=== PATIENT | female | born 1945 | race Two or more races ===

== ENCOUNTER 2019-02-15 07:13 | Outpatient (CLI) | payer OTHER | END 2019-02-15 07:20 | disposition home or self-care (01) | LOC: TOM 07:13 | DX: K44.9 Diaphragmatic hernia without obstruction or gangrene (principal); N28.89 Other specified disorders of kidney and ureter | CPT/HCPCS: 74160; Q9965 ==

== ENCOUNTER 2019-12-26 14:01 | Outpatient (CLI) | payer OTHER | END 2019-12-26 14:17 | disposition home or self-care (01) | LOC: SONOGRAMA 14:01 → MAMO-SONO 14:45 | DX: D21.6 Benign neoplasm of connective and other soft tissue of trunk, unspecified (principal) ==

== ENCOUNTER 2020-08-31 07:40 | Outpatient (CLI) | payer OTHER | END 2020-08-31 07:46 | disposition home or self-care (01) | LOC: SONOGRAMA 07:40 → MAMO-SONO 08:15 | PROVIDERS: ATTEND Internal Medicine Hepatology | DX: K76.0 Fatty (change of) liver, not elsewhere classified (principal) ==

== ENCOUNTER 2021-01-09 10:08 | Outpatient (CLI) | payer OTHER | END 2021-01-09 10:22 | disposition home or self-care (01) | LOC: MAMO-SONO 10:08 | DX: Z12.31 Encounter for screening mammogram for malignant neoplasm of breast (principal); Z87.898 Personal history of other specified conditions; N64.89 Other specified disorders of breast ==

== ENCOUNTER → 2021-07-15 | Outpatient (CLI) | payer OTHER | END | disposition home or self-care (01) | LOC: MAMO-SONO 12:22 | PROVIDERS: ATTEND Specialist | DX: D24.2 Benign neoplasm of left breast (principal); N60.02 Solitary cyst of left breast; R92.8 Other abnormal and inconclusive findings on diagnostic imaging of breast ==

== ENCOUNTER 2021-08-01 11:35 | Outpatient (CLI) | payer OTHER | END 2021-08-01 11:45 | disposition home or self-care (01) | LOC: RAD 11:35 | PROVIDERS: ATTEND Specialist | DX: M17.0 Bilateral primary osteoarthritis of knee (principal) ==

== ENCOUNTER → 2022-01-09 | Outpatient (CLI) | payer OTHER | END | disposition home or self-care (01) | LOC: MAMO-SONO 09:06 | PROVIDERS: ATTEND Specialist | DX: D24.2 Benign neoplasm of left breast (principal) ==

== ENCOUNTER 2022-11-24 12:44 | Outpatient (CLI) | payer OTHER | END 2022-11-24 12:45 | disposition home or self-care (01) | LOC: NUCLEAR 12:44 | PROVIDERS: ATTEND Obstetrics & Gynecology Gynecology | DX: M81.0 Age-related osteoporosis without current pathological fracture (principal) ==

== ENCOUNTER → 2022-11-24 | Outpatient (CLI) | payer OTHER | END | disposition home or self-care (01) | LOC: SONOGRAMA 10:21 | PROVIDERS: ATTEND Obstetrics & Gynecology | DX: B43.2 Subcutaneous pheomycotic abscess and cyst (principal); K61.31 Horseshoe abscess ==

== ENCOUNTER 2023-01-13 12:58 | Outpatient (CLI) | payer OTHER | END 2023-01-13 13:09 | disposition home or self-care (01) | LOC: MAMO-SONO 12:58 | PROVIDERS: ATTEND Specialist | DX: N60.12 Diffuse cystic mastopathy of left breast (principal) ==

== ENCOUNTER 2023-05-21 13:19 | Outpatient (CLI) | payer OTHER | END 2023-05-21 13:25 | disposition home or self-care (01) | LOC: RAD 13:19 | DX: Z96.652 Presence of left artificial knee joint (principal) ==

== ENCOUNTER 2023-06-30 13:09 | Outpatient (CLI) | payer OTHER | END 2023-06-30 13:15 | disposition home or self-care (01) | LOC: RAD 13:09 | PROVIDERS: ATTEND Specialist | DX: R22.2 Localized swelling, mass and lump, trunk (principal); I10 Essential (primary) hypertension ==

== ENCOUNTER 2023-07-14 05:06 | Day surgery (SDC) | payer OTHER ==
[~2023-07-14 05:06] MED LIST: CARVEDILOL12.5 MG; CHILDREN'S ASPI81 MG PO; CRESTOR40 MG PO; HYDRODIURIL12.5 MG PO; LEVOTHYROXINE25 MCG PO; MICARDIS80 MG PO; NORVASC5 MG PO; PROTONIX40 MG PO; ZESTRIL20 MG PO; ZETIA10 MG PO
== END 2023-07-14 11:25 | disposition home or self-care (01) ==
LOC: CIR.AMB 05:06
PROVIDERS: ATTEND Specialist
DX: D48.1 Neoplasm of uncertain behavior of connective and other soft tissue (principal); L72.0 Epidermal cyst; R22.2 Localized swelling, mass and lump, trunk; Z20.822 Contact with and (suspected) exposure to COVID-19; Z91.041 Radiographic dye allergy status; Z88.1 Allergy status to other antibiotic agents

== ENCOUNTER 2023-08-31 10:48 | Outpatient (CLI) | payer OTHER | END 2023-08-31 10:55 | disposition home or self-care (01) | LOC: RAD 10:48 | PROVIDERS: ATTEND General Practice | DX: A49.3 Mycoplasma infection, unspecified site (principal); Z88.2 Allergy status to sulfonamides; Z91.041 Radiographic dye allergy status ==

== ENCOUNTER 2024-01-20 12:14 | Outpatient (CLI) | payer OTHER | END 2024-01-20 12:22 | disposition home or self-care (01) | LOC: MAMO-SONO 12:14 | PROVIDERS: ATTEND Specialist | DX: R92.1 Mammographic calcification found on diagnostic imaging of breast (principal); Z12.31 Encounter for screening mammogram for malignant neoplasm of breast ==

== ENCOUNTER 2024-12-20 12:29 | Outpatient (CLI) | payer OTHER | END 2024-12-20 12:31 | disposition home or self-care (01) | LOC: NUCLEAR 12:29 | PROVIDERS: ATTEND Physical Medicine & Rehabilitation | DX: M81.0 Age-related osteoporosis without current pathological fracture (principal) ==

== ENCOUNTER 2025-01-26 11:37 | Outpatient (CLI) | payer OTHER | END 2025-01-26 11:42 | disposition home or self-care (01) | LOC: RAD 11:37 | DX: S52.231A Displaced oblique fracture of shaft of right ulna, initial encounter for closed fracture (principal); X58.XXXA Exposure to other specified factors, initial encounter; Y93.9 Activity, unspecified; Y92.9 Unspecified place or not applicable; Y99.9 Unspecified external cause status ==

== ENCOUNTER 2025-05-02 10:47 | Outpatient (CLI) | payer OTHER | END 2025-05-02 10:58 | disposition home or self-care (01) | LOC: MAMO-SONO 10:47 | PROVIDERS: ATTEND Specialist | DX: R92.0 Mammographic microcalcification found on diagnostic imaging of breast (principal); Z12.31 Encounter for screening mammogram for malignant neoplasm of breast ==

== ENCOUNTER → 2025-06-29 | Emergency (ER) | payer OTHER ==
[~2025-06-29] VITALS: Ht 165.1 cm; Wt 90.7 kg
[~2025-06-29] MED LIST changes: +ACETAMINOPHEN500 M1 PO; +GILTUSS HONEY118 ML PO; +OSEL75CA PO; +OSELTAMIVIR PHOSPHATE 75 MG CAPSULE PO ONE; +ZITHROMAX TRI-500 MG PO
[2025-06-29 16:05] LABS: BASO % 0.3 % (0.1-1.2); EOS # 0.00 (0.04-0.54); EOS % 0.0 % (0.7-7.0); LYMPH # 0.94 (1.18-3.74); LYMPH % 16.2 % (19.3-53.1); MEAN PLATELET VOLUME 9.80 fl (9.4-12.4); MONO # 0.73 (0.24-0.82); NEUT # 4.10 (1.56-6.13); NEUT % 70.6 % (34.0-71.1); RED CELL DISTRIBUTION WIDTH 14.4 % (11.6-14.4)
[2025-06-29 16:10] LABS: MONO % 12.6 % (4.7-12.5)
[2025-06-29 16:33] LABS: COVID-19 AG NEGATIVE (NEGATIVE)
== END | disposition home or self-care (01) ==
LOC: ER 13:35
PROVIDERS: Preventive Medicine Public Health & General Preventive Medicine
DX: J06.9 Acute upper respiratory infection, unspecified (principal); R05.9 Cough, unspecified; I10 Essential (primary) hypertension; E03.8 Other specified hypothyroidism; Z20.822 Contact with and (suspected) exposure to COVID-19; Z88.2 Allergy status to sulfonamides; Z91.041 Radiographic dye allergy status